=== PATIENT | female | born 1950 | race Caucasian/White ===

== ENCOUNTER → 2016-10-22 | Outpatient (CLI) | payer MEDICARE, OTHER | LOC: KOH-I 14:49 | DX: M25.461 Effusion, right knee (principal) | CPT/HCPCS: 73564 ==

== ENCOUNTER → 2020-08-28 | Outpatient (CLI) | payer MEDICARE, OTHER ==
[~2020-08-28] MED LIST: ACETAMINOPHEN1 EACH PO; CALCIUM PO; ECOTRIN81 MG PO; GLUCOPHAGE XR500 MG PO; IMDUR ER TAB 3030 MG PO; LEVAQUIN500 MG PO; LEXAPRO20 MG PO; LOPRESSOR 25 MG25 MG PO; LOTREL 5-20 MG1 EACH PO; MELATONIN5 MG PO; TUMS ULTRA400 MG PO; TYLENOL WITH C1 EACH PO; VITAMIN D35000 UNI1 PO; ZOCOR20 MG PO
== END ==
LOC: MAMO 12:38 → US 13:30
DX: R92.8 Other abnormal and inconclusive findings on diagnostic imaging of breast (principal)
CPT/HCPCS: 76641-RT; 77065

== ENCOUNTER → 2021-02-06 | Outpatient (CLI) | payer MEDICARE, OTHER | LOC: KOH-I 15:27 | DX: M79.605 Pain in left leg (principal) | CPT/HCPCS: 73590 ==

== ENCOUNTER 2021-07-01 11:32 | Inpatient (IN) | payer MEDICARE, OTHER ==
[~2021-07-01] VITALS: Ht 165.1 cm; Wt 107.0 kg
[~2021-07-01 11:32] MED LIST changes: +CALCIUM CARBON600 MG PO; -CALCIUM PO; -GLUCOPHAGE XR500 MG PO; +LOTREL 5-10 MG1 EACH PO; -LOTREL 5-20 MG1 EACH PO; +METFORMIN HCL500 M2 PO
[2021-07-01 13:52] LABS: BUN/CREATININE RATIO 13 (0-10)
[2021-07-01 14:08] LABS: HEMOGLOBIN 13.3 gm/dl (12.3-15.3); RED BLOOD COUNT 4.32 M/UL (4.00-5.10); WHITE BLOOD COUNT 7.2 K/UL (4.5-11.0)
[2021-07-01] MEDS ORDERED: FEXOFENADINE H180 MG PO (15:06)
[2021-07-01] MEDS ORDERED: SOTALOL80 MG PO (15:06)
[2021-07-02 02:58] LABS: HEMOGLOBIN 13.8 gm/dl (12.3-15.3); RED BLOOD COUNT 4.45 M/UL (4.00-5.10); WHITE BLOOD COUNT 8.9 K/UL (4.5-11.0)
[2021-07-02 03:56] LABS: BUN/CREATININE RATIO 15 (0-10)
[2021-07-03 03:08] LABS: HEMOGLOBIN 12.5 gm/dl (12.3-15.3); RED BLOOD COUNT 4.08 M/UL (4.00-5.10)
[2021-07-03 03:31] LABS: BUN/CREATININE RATIO 21 (0-10)
[2021-07-03] MEDS ORDERED: DECADRON6 MG PO (10:57)
[2021-07-03] MEDS ORDERED: ELIQUIS 2.5 MG2.5 MG PO (10:57)
[2021-07-04 02:57] LABS: HEMOGLOBIN 13.1 gm/dl (12.3-15.3); RED BLOOD COUNT 4.26 M/UL (4.00-5.10); WHITE BLOOD COUNT 6.4 K/UL (4.5-11.0)
[2021-07-04 03:21] LABS: BUN/CREATININE RATIO 18 (0-10)
[2021-07-05 07:51] LABS: HEMOGLOBIN 12.6 gm/dl (12.3-15.3); RED BLOOD COUNT 4.22 M/UL (4.00-5.10); WHITE BLOOD COUNT 5.1 K/UL (4.5-11.0)
[2021-07-05 08:11] LABS: BUN/CREATININE RATIO 24 (0-10)
[2021-07-05] MEDS ORDERED: BENZONATATE100 MG PO (10:53)
== END 2021-07-05 15:40 | disposition home or self-care (01) | DRG 177 ==
LOC: ER1 11:32 → CDU 14:46 → PROG CARE 14:46 → M/S 07-04 13:23
PROVIDERS: Internal Medicine; Physician Assistant; ADMIT Internal Medicine
PROC: 8E0ZXY6 Isolation (ICD-10-PCS; principal; 2021-07-01)
PROC: XW033E5 Introduction of Remdesivir Anti-infective into Peripheral Vein, Percutaneous Approach, New Technology Group 5 (ICD-10-PCS; 2021-07-01)
PROC: 3E0333Z Introduction of Anti-inflammatory into Peripheral Vein, Percutaneous Approach (ICD-10-PCS; 2021-07-01)
DX: U07.1 COVID-19 (principal); J12.82 Pneumonia due to coronavirus disease 2019; J96.01 Acute respiratory failure with hypoxia; I47.1 Supraventricular tachycardia; I42.9 Cardiomyopathy, unspecified; I73.9 Peripheral vascular disease, unspecified; K21.9 Gastro-esophageal reflux disease without esophagitis; I10 Essential (primary) hypertension; E11.51 Type 2 diabetes mellitus with diabetic peripheral angiopathy without gangrene; G47.33 Obstructive sleep apnea (adult) (pediatric); I49.5 Sick sinus syndrome; M19.91 Primary osteoarthritis, unspecified site; E66.9 Obesity, unspecified; Z96.653 Presence of artificial knee joint, bilateral; Z90.49 Acquired absence of other specified parts of digestive tract; Z90.710 Acquired absence of both cervix and uterus; Z98.890 Other specified postprocedural states; Z79.899 Other long term (current) drug therapy; Z95.0 Presence of cardiac pacemaker; Z95.5 Presence of coronary angioplasty implant and graft; Z88.8 Allergy status to other drugs, medicaments and biological substances; Z82.61 Family history of arthritis; Z79.82 Long term (current) use of aspirin; Z79.4 Long term (current) use of insulin; Z68.38 Body mass index [BMI] 38.0-38.9, adult
CPT/HCPCS: 36415; 36600; 71045; 80048; 80053; 80076; 81001; 82550; 82553; 82728; 82803; 82962; 83615; 83735; 83874; 84484; 85025; 85027; 85379; 86140; 93005; 94640; 94664; 94760; 96374; 99283; J1100; J1650; J7030

== ENCOUNTER → 2021-08-31 | Outpatient (CLI) | payer MEDICARE, OTHER ==
[~2021-08-31] MED LIST changes: +BENZONATATE100 MG PO; +DECADRON6 MG PO; +ELIQUIS 2.5 MG2.5 MG PO; +EVISTA 60 MG TA60 MG PO; +FEXOFENADINE H180 MG PO; +IBUPROFEN PO; +MELATONIN10 MG PO; +SOTALOL80 MG PO
[2021-08-31 11:44] LABS: HEMOGLOBIN 13.4 gm/dl (12.3-15.3); RED BLOOD COUNT 4.5 M/UL (4.00-5.10); WHITE BLOOD COUNT 5.7 K/UL (4.5-11.0)
[2021-08-31 12:01] LABS: BUN/CREATININE RATIO 13 (0-10)
== END ==
LOC: OPSV2 10:27
PROVIDERS: Orthopaedic Surgery
DX: Z01.818 Encounter for other preprocedural examination (principal); R94.31 Abnormal electrocardiogram [ECG] [EKG]
CPT/HCPCS: 36415; 80048; 83036; 85027; 93005

== ENCOUNTER → 2021-09-07 | Outpatient (CLI) | payer MEDICARE, OTHER ==
[~2021-09-07] MED LIST changes: +CYCLOBENZAPRINE10 MG PO; +ELIQUIS2.5 MG PO; +OXYCODON-ACETA1 EAC1 PO; +ZOFRAN 4 MG TAB4 MG PO
== END ==
LOC: LAB 14:10
PROVIDERS: Orthopaedic Surgery
DX: Z01.812 Encounter for preprocedural laboratory examination (principal); T84.093A Other mechanical complication of internal left knee prosthesis, initial encounter; E11.9 Type 2 diabetes mellitus without complications; I10 Essential (primary) hypertension
CPT/HCPCS: 36415; 80048; 86850; 86900; 86901

== ENCOUNTER 2021-09-08 06:11 | Inpatient (IN) | payer MEDICARE, OTHER ==
[~2021-09-08] VITALS: Ht 167.6 cm; Wt 109.3 kg
[~2021-09-08 06:11] MED LIST changes: -CYCLOBENZAPRINE10 MG PO; -ELIQUIS2.5 MG PO; -OXYCODON-ACETA1 EAC1 PO; -ZOCOR20 MG PO; -ZOFRAN 4 MG TAB4 MG PO
[2021-09-08] MEDS ORDERED: CYCLOBENZAPRINE10 MG PO (08:27)
[2021-09-08] MEDS ORDERED: ZOFRAN 4 MG TAB4 MG PO (08:27)
[2021-09-08] MEDS ORDERED: OXYCODON-ACETA1 EAC1 PO (08:27)
[2021-09-08] MEDS ORDERED: ELIQUIS2.5 MG PO (08:27)
[2021-09-08] MEDS ORDERED: ZOCOR20 MG PO (12:34)
--- NOTE | 2021-09-09 06:05 | NUR ---
PT WORE POLAR ICE MOST OF THE SHIFT. PT DID NOT WEAR DEVICE FROM 1944 TO 2099, BUT WORE CONTINUOUSLY OTHERWISE. ICE REFILLED AT 209909/08/21 AND 29909/09/21. PT TOLERATED WELL.
[2021-09-09 06:36] LABS: HEMOGLOBIN 10.2 gm/dl (12.3-15.3); RED BLOOD COUNT 3.37 M/UL (4.00-5.10); WHITE BLOOD COUNT 9.3 K/UL (4.5-11.0)
[2021-09-09 07:03] LABS: BUN/CREATININE RATIO 11 (0-10)
--- NOTE | 2021-09-09 11:41 | NUR ---
NOTE FROM MD REGARDING HOME O2. PATIENT WAS 93% DURING EXTENDED AMBULATION AND DID NOT DROP BELOW THAT, SO PATIENT WILL NOT QUALIFY FOR HOME O2. PATIENT WILL BE DISCHARGED WITHOUT.
== END 2021-09-09 12:55 | disposition home or self-care (01) | DRG 468 ==
LOC: OR 06:11 → EDSTATUS 10:45 → OR 11:15 → M/S 14:38 → OR 14:39 → M/S 09-09 12:55
PROVIDERS: ADMIT Orthopaedic Surgery
PROC: 0SPD09Z Removal of Liner from Left Knee Joint, Open Approach (ICD-10-PCS; 2021-09-08)
PROC: 0SUW09Z Supplement Left Knee Joint, Tibial Surface with Liner, Open Approach (ICD-10-PCS; 2021-09-08)
PROC: 0SPD0JZ Removal of Synthetic Substitute from Left Knee Joint, Open Approach (ICD-10-PCS; 2021-09-08)
PROC: 0SRD0J9 Replacement of Left Knee Joint with Synthetic Substitute, Cemented, Open Approach (ICD-10-PCS; principal; 2021-09-08 11:15)
DX: T84.023A Instability of internal left knee prosthesis, initial encounter (principal); M25.362 Other instability, left knee; Z20.822 Contact with and (suspected) exposure to COVID-19; E11.9 Type 2 diabetes mellitus without complications; G47.33 Obstructive sleep apnea (adult) (pediatric); E66.9 Obesity, unspecified; F32.A Depression, unspecified; F41.9 Anxiety disorder, unspecified; D64.9 Anemia, unspecified; I11.0 Hypertensive heart disease with heart failure; I50.9 Heart failure, unspecified; K21.9 Gastro-esophageal reflux disease without esophagitis; Y83.9 Surgical procedure, unspecified as the cause of abnormal reaction of the patient, or of later complication, without mention of misadventure at the time of the procedure; Z96.653 Presence of artificial knee joint, bilateral; Z79.4 Long term (current) use of insulin; Z82.3 Family history of stroke; Z82.49 Family history of ischemic heart disease and other diseases of the circulatory system; Z95.0 Presence of cardiac pacemaker; Z90.710 Acquired absence of both cervix and uterus; Z90.49 Acquired absence of other specified parts of digestive tract; Z88.6 Allergy status to analgesic agent; Z87.01 Personal history of pneumonia (recurrent); Z87.11 Personal history of peptic ulcer disease; Z68.34 Body mass index [BMI] 34.0-34.9, adult
CPT/HCPCS: 36415; 73560; 80048; 82962; 83735; 85027; 86850; 86900; 86901; 87070; 87205; 97116-GP-CQ; 97161; 97166; 97535; C1776; J0690; J1100; J1170; J1644; J2250; J2405; J2704; J2795; J3010; J3370; J3475; J7030; J7050; J7120

== ENCOUNTER → 2022-05-13 | Outpatient (CLI) | payer MEDICARE, OTHER ==
[~2022-05-13] MED LIST changes: +CYCLOBENZAPRINE10 MG PO; +ELIQUIS2.5 MG PO; +OXYCODON-ACETA1 EAC1 PO; +ZOCOR20 MG PO; +ZOFRAN 4 MG TAB4 MG PO
== END ==
LOC: MAMO 13:49
DX: Z12.31 Encounter for screening mammogram for malignant neoplasm of breast (principal)
CPT/HCPCS: 77063; 77067